=== PATIENT | female | born 1960 | race African-American/Black ===

== ENCOUNTER 2017-07-16 09:51 | Emergency (ER) | payer OTHER ==
[2017-07-16] MEDS ORDERED: HYDROMORPHONE HCL INJ/PF 2 MG/ML AMPULE IM ONE (11:17)
[2017-07-16] MEDS ORDERED: PREDNISONE 20 MG TABLET PO ONE (11:18)
[2017-07-16] MEDS ORDERED: LIDOCAINE 5% (700 MG) TRANSDERMAL ADH..PATCH TP ONE (11:18)
--- NOTE | 2017-07-16 11:21 | ER Document Report ---
HPI - HPI Patient complains to provider of: Low back pain Onset: This morning Onset/Duration: Sudden Quality of pain: Sharp Pain Level: 5 Context: She has a history of chronic low back pain that flared up today. 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 Patient denies any urinary retention or incontinence. Patient states pain is in the same location as previous episodes of her back pain been. Associated Symptoms: Other - Back pain. denies: Headache, Vomiting Exacerbated by: Movement Relieved by: Denies Similar symptoms previously: Yes Recently seen / treated by doctor: No - ROS ROS below otherwise negative: Yes Systems Reviewed and Negative: Yes All other systems reviewed and negative - CONSTITUTIONAL Constitutional: DENIES: Fever, Chills - NEURO Neurology: DENIES: Headache, Weakness - GASTROINTESTINAL Gastrointestinal: DENIES: Patient vomiting - REPRODUCTIVE Reproductive: DENIES: : - MUSCULOSKELETAL Musculoskeletal: REPORTS: Back Pain. 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 Lives with: Family Family History: Reviewed & Not Pertinent Patient has suicidal ideation: No Patient has homicidal ideation: No - Past Medical History Cardiac Medical History: Denies: Hx Hypercholesterolemia, Hx Hypertension Pulmonary Medical History: Reports: Hx Asthma Endocrine Medical History: Reports: Hx Hypothyroidism Renal/ Medical History: Denies: Hx Peritoneal Dialysis Musculoskeltal Medical History: Reports Hx Arthritis - LOW BACK, Reports Other - Chronic back pain Past Surgical History: Reports: Hx Abdominal Surgery - gastric sleeve in May 2013., Hx Gastric Bypass Surgery, Hx Gynecologic Surgery - Ablation procedure, Hx Tubal Ligation - Immunizations Hx Diphtheria, Pertussis, Tetanus Vaccination: Yes Vertical Provider Document - CONSTITUTIONAL Agree With Documented VS: Yes Exam Limitations: No Limitations General Appearance: WD/WN, No Apparent Distress Notes: PHYSICAL EXAMINATION: GENERAL: Well-appearing, well-nourished and in no acute distress. HEAD: Atraumatic, normocephalic. EYES: sclera clear, anicteric, conjunctiva are normal. ENT: nares patent, Moist mucous membranes. NECK: Normal range of motion, supple no lymphadenopathy LUNGS: respirations unlabored HEART: Regular rate and rhythm without murmurs EXTREMITIES: Normal range of motion, no pitting or edema. No cyanosis. Gait normal, pt ambulates without difficulty BACK: Lumbar paraspinal tenderness, lower lumbar midline tenderness, no deformities or step-offs. No CVA tenderness. NEUROLOGICAL: Cranial nerves grossly intact. Normal speech, patient walks with stooped gait comfort. No saddle anesthesia. 2+ bilateral patellar and Achilles reflexes PSYCH: Normal mood, normal affect. SKIN: Warm, Dry, normal turgor, no rashes or lesions noted. - INFECTION CONTROL TRAVEL OUTSIDE OF THE [place] IN LAST 30 DAYS: No - RESPIRATORY O2 Sat by Pulse Oximetry: 97 Course - Re-evaluation Re-evalutation: 07/16/17 11:19 The patient presents with low back pain without signs of spinal cord compression , cauda equina syndrome, infection, aneurysm, or other serious etiology. The patient is neurologically intact. Given the extremely risk of these diagnoses further testing and evaluation for these possibilities does not appear to be indicated at this time. Patient has been instructed to return if the symptoms worsen or change in any way. - Vital Signs Vital signs: Temp Pulse Resp BP Pulse Ox 97.7 F 93 19 115/71 97 07/16/17 09:56 07/16/17 09:56 07/16/17 09:56 07/16/17 09:56 07/16/17 09:56 - Diagnostic Test Radiology reviewed: Reports reviewed - Reviewed patient's L spine report from Discharge - Discharge Clinical Impression: Low back pain Qualifiers: Chronicity: chronic Back pain laterality: bilateral Sciatica presence: unspecified whether sciatica present Qualified Code(s): M54.5 - Low back pain Condition: Stable Disposition: HOME, SELF-CARE Instructions: Ice Packs ([facility]), Low Back Pain ([facility]), Oral Narcotic Medication ( [facility]), Steroid Medication Additional Instructions: Return immediately for any new or worsening symptoms Followup with your primary care provider, call tomorrow to make a followup appointment No heavy lifting Follow-up with pain management for any continued pain Prescriptions: Oxycodone HCl/Acetaminophen [Percocet 5-325 mg Tablet] 1 - 2 tab PO ASDIR PRN # 15 tablet PRN Reason: Prednisone [Deltasone 20 mg Tablet] 3 tab PO DAILY 4 Days tablet Forms: Return to Work Referrals: [facility] [Provider Group] - Follow up as needed [facility] [Provider Group] - Follow up as needed MATT DURAN MD [Primary Care Provider] - Follow up tomorrow
[2017-07-16 12:10] VITALS: BP 120/79
== END 2017-07-16 12:10 | disposition home or self-care (01) ==
LOC: ER 09:51
DX: M54.5 Low back pain (principal); G89.29 Other chronic pain; Z98.84 Bariatric surgery status; Z98.51 Tubal ligation status
CPT/HCPCS: 99283; J1170; J7512

== ENCOUNTER 2018-06-16 10:11 | Emergency (ER) | payer OTHER ==
[2018-06-16] MEDS ORDERED: CYCLOBENZAPRINE HCL 10 MG TABLET PO ONE (11:17)
[2018-06-16] MEDS ORDERED: OXYCODONE-ACETAMINOPHEN 5-325 MG TABLET PO ONE (11:17)
--- NOTE | 2018-06-16 13:04 | ER Document Report ---
HPI - HPI Patient complains to provider of: Low back pain Onset: Yesterday Onset/Duration: Gradual Quality of pain: Achy Pain Level: 5 Context: Patient presents complaining of a flareup of her chronic low back pain. Patient states that she has low back pain almost daily although reports pain yesterday increased from her normal. Patient states that she had been cleaning up her house and started to develop increased pain. Patient also complains of right upper back and neck pain. Patient states that since she has been here she has started to develop a headache. Patient states that she has not had anything to eat all day. Associated Symptoms: Headache, Other - Right-sided neck, back pain. denies: Nonproductive cough, Productive cough Exacerbated by: Movement Relieved by: Remaining still Similar symptoms previously: Yes Recently seen / treated by doctor: No - ROS ROS below otherwise negative: Yes Systems Reviewed and Negative: Yes All other systems reviewed and negative - CONSTITUTIONAL Constitutional: DENIES: Fever, Chills - NEURO Neurology: REPORTS: Headache. DENIES: Weakness, Vision blurred - CARDIOVASCULAR Cardiovascular: DENIES: Chest pain - RESPIRATORY Respiratory: DENIES: Trouble Breathing - GASTROINTESTINAL Gastrointestinal: DENIES: Nausea, Patient vomiting - REPRODUCTIVE Reproductive: DENIES: : - MUSCULOSKELETAL Musculoskeletal: REPORTS: Back Pain, Neck Pain. DENIES: Extremity pain - DERM Skin Color: Normal Skin Problems: None Past Medical History - General Information source: Patient - Social History Smoking Status: Never Smoker Frequency of alcohol use: None Drug Abuse: None Lives with: Family Family History: Reviewed & Not Pertinent Patient has suicidal ideation: No Patient has homicidal ideation: No - Past Medical History Cardiac Medical History: Denies: Hx Hypercholesterolemia, Hx Hypertension Pulmonary Medical History: Reports: Hx Asthma Endocrine Medical History: Reports: Hx Hypothyroidism Renal/ Medical History: Denies: Hx Peritoneal Dialysis Musculoskeletal Medical History: Reports Hx Arthritis - LOW BACK Past Surgical History: Reports: Hx Abdominal Surgery - gastric sleeve in May 2013., Hx Gastric Bypass Surgery, Hx Gynecologic Surgery - Ablation procedure, Hx Tubal Ligation - Immunizations Hx Diphtheria, Pertussis, Tetanus Vaccination: Yes Vertical Provider Document - CONSTITUTIONAL Agree With Documented VS: Yes Exam Limitations: No Limitations General Appearance: WD/WN, No Apparent Distress Notes: PHYSICAL EXAMINATION: GENERAL: Well-appearing, well-nourished and in no acute distress. HEAD: Atraumatic, normocephalic. EYES: sclera clear, anicteric, conjunctiva are normal. ENT: nares patent, Moist mucous membranes. NECK: Normal range of motion, supple no lymphadenopathy LUNGS: respirations unlabored HEART: Regular rate and rhythm without murmurs EXTREMITIES: Normal range of motion, no pitting or edema. No cyanosis. Gait normal, pt ambulates without difficulty BACK: Right trapezius muscle tenderness with spasm, right lower lumbar paraspinal tenderness midline tenderness, no deformities or step-offs. No CVA tenderness. NEUROLOGICAL: Cranial nerves grossly intact. Normal speech, normal gait. No saddle anesthesia. PSYCH: Normal mood, normal affect. SKIN: Warm, Dry, normal turgor, no rashes or lesions noted. - INFECTION CONTROL TRAVEL OUTSIDE OF THE [place] IN LAST 30 DAYS: No Course - Re-evaluation Re-evalutation: 06/16/18 13:02 The patient presents with low back pain without signs of spinal cord compression , cauda equina syndrome, infection, aneurysm, or other serious etiology. The patient is neurologically intact. Given the extremely risk of these diagnoses further testing and evaluation for these possibilities does not appear to be indicated at this time. 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 The patient is neurologically intact. Given the extremely low risk of these diagnoses further testing and evaluation for these possibilities does not appear to be indicated at this time. The patient has been instructed to return if the symptoms worsen or change in any way. - Vital Signs Vital signs: Temp Pulse Resp BP Pulse Ox 98.1 F 87 20 127/84 H 97 06/16/18 10:18 06/16/18 10:18 06/16/18 10:18 06/16/18 10:18 06/16/18 10:18 Discharge - Discharge Clinical Impression: Low back pain Qualifiers: Chronicity: unspecified Back pain laterality: right Sciatica presence: unspecified whether sciatica present Qualified Code(s): M54.5 - Low back pain Headache Qualifiers: Headache type: unspecified Headache chronicity pattern: unspecified pattern Intractability: not intractable Qualified Code(s): R51 - Headache Trapezius muscle strain Qualifiers: Encounter type: initial encounter Laterality: right Qualified Code(s): S46.811A - Strain of other muscles, fascia and tendons at shoulder and upper arm level, right arm, initial encounter Condition: Stable Disposition: HOME, SELF-CARE Instructions: Ice Packs ([facility]), Low Back Pain ([facility]), Muscle Relaxers ([facility]), Muscle Strain ([facility]), Oral Narcotic Medication ([facility]) Additional Instructions: Return immediately for any new or worsening symptoms Followup with your primary care provider, call tomorrow to make a followup appointment Prescriptions: Cyclobenzaprine HCl [Flexeril 10 Mg Tablet] 10 mg PO TID #15 tablet Oxycodone HCl/Acetaminophen [Percocet 5-325 mg Tablet] 1 tab PO ASDIR PRN #15 tablet PRN Reason: Referrals: KWAKU FERNANDEZ NP [Primary Care Provider] - Follow up as needed
[2018-06-16 13:25] VITALS: BP 121/82
== END 2018-06-16 13:20 | disposition home or self-care (01) ==
LOC: ER 10:11
DX: S46.811A Strain of other muscles, fascia and tendons at shoulder and upper arm level, right arm, initial encounter (principal); X58.XXXA Exposure to other specified factors, initial encounter; G89.29 Other chronic pain; R51 Headache; M54.6 Pain in thoracic spine; M54.2 Cervicalgia; M54.5 Low back pain; Z98.84 Bariatric surgery status
CPT/HCPCS: 99283

== ENCOUNTER 2018-09-03 19:42 | Emergency (ER) | payer OTHER ==
[2018-09-03] MEDS ORDERED: ASPIRIN 81 MG TABLET, CHEWABLE PO ONE (21:15)
[2018-09-03] MEDS ORDERED: IPRATROPIUM/ALBUTEROL 0.5-2.5 MG/3 ML AMPUL NEB ONE (21:20)
[2018-09-03] MEDS ORDERED: PREDNISONE 20 MG TABLET PO ONE (21:20)
[2018-09-03] MEDS: ALBUTEROL SULFATE 0.083% NEB 2.5 MG/3 ML AMPUL NEB SCH ×2 (21:25→21:53)
[2018-09-03 21:45] LABS: ABSOLUTE BASOPHILS # (AUTO) 0.1 10^3/uL (0.0-0.2); ABSOLUTE EOSINOPHILS # (AUTO) 0.2 10^3/uL (0.0-0.6); ABSOLUTE LYMPHOCYTES (AUTO) 2.3 10^3/uL (0.5-4.7); ABSOLUTE MONOCYTES (AUTO) 0.6 10^3/uL (0.1-1.4); ABSOLUTE NEUT (AUTO) 4.4 10^3/uL (1.7-8.2); BASOPHILS % (AUTO) 0.9 % (0-2); EOSINOPHILS % (AUTO) 2.7 % (0-6); HEMATOCRIT 35.9 % (36.0-47.0); HEMOGLOBIN 11.9 g/dL (12.0-15.5); LYMPHOCYTES % (AUTO) 30.3 % (13-45); MEAN CORPUSCULAR HGB CONC 33.1 g/dL (32.0-36.0); MEAN CORPUSCULAR VOLUME 94 fl (80-97); MONOCYTES % (AUTO) 8.5 % (3-13); PLATELET COUNT 262 10^3/uL (150-450); RED BLOOD COUNT 3.83 10^6/uL (3.72-5.28); RED CELL DISTRIBUTION WIDTH 14.6 % (11.5-14.0); SEGMENTED NEUTROPHILS % (AUTO) 57.6 % (42-78); TOTAL CELLS COUNTED % (AUTO) 100 %; WHITE BLOOD COUNT 7.6 10^3/uL (4.0-10.5)
[2018-09-03 22:04] LABS: ALANINE AMINOTRANSFERASE 13 U/L (9-52); ALBUMIN 4.8 g/dL (3.5-5.0); ALKALINE PHOSPHATASE 80 U/L (38-126); ANION GAP 6 (5-19); ASPARTATE AMINO TRANSFERASE 29 U/L (14-36); BILIRUBIN,DIRECT 0.5 mg/dL (0.0-0.4); BILIRUBIN,TOTAL 0.7 mg/dL (0.2-1.3); BLOOD UREA NITROGEN 8 mg/dL (7-20); CALCIUM 9.5 mg/dL (8.4-10.2); CARBON DIOXIDE 32 mmol/L (22-30); CHLORIDE 102 mmol/L (98-107); CREATINE KINASE 157 U/L (30-135); GLUCOSE 104 mg/dL (75-110); SODIUM 140.2 mmol/L (137-145); TOTAL PROTEIN 8.1 g/dL (6.3-8.2)
--- NOTE | 2018-09-03 22:06 | RADIOLOGY REPORT (SQ) ---
EXAM DESCRIPTION: XR CHEST 1 VIEW COMPLETED DATE/TME: 09/03/2018 21:15 CLINICAL HISTORY: 58 years, Female, CP COMPARISON: 2-16 chest NUMBER OF VIEWS: 1 TECHNIQUE: Portable chest LIMITATIONS: None. FINDINGS: Heart size is normal. Lungs are clear. No pneumothorax IMPRESSION: No acute cardiopulmonary process copyright 2010 [employer]- All Rights Reserved
[2018-09-03 22:18] LABS: NT PRO BNP 12 pg/mL (5-900)
[2018-09-03 22:23] LABS: CREATINE KINASE MB < 0.22 ng/mL (<4.55); TROPONIN I < 0.012 ng/mL
[2018-09-03] MEDS ORDERED: ALBUTEROL SULFATE 0.083% NEB 2.5 MG/3 ML AMPUL NEB ONE (23:13)
[2018-09-03] MEDS ORDERED: AZITHROMYCIN 250 MG TABLET PO ONE (23:13)
--- NOTE | 2018-09-04 00:19 | ER Document Report ---
ED Respiratory Problem - General Chief Complaint: Breathing Difficulty Stated Complaint: CHEST PAIN Time Seen by Provider: 09/03/18 22:08 Primary Care Provider: KWAKU FERNANDEZ NP [Primary Care Provider] - Follow up as needed Information source: Patient, Relative Notes: Patient is a 58-year-old female with a previous history of asthma who presents with 3-4 days of cough with congestion and chills. Patient reports that her asthma is well controlled and she no longer takes maintenance therapy, including no asthma exacerbations in the last 2 years, she also reports not having home rescue inhaler given her well-controlled state. She reports a nonproductive cough that began last week that was followed by chills and body aches, denies chest pain but does report increased work of breathing when she coughs, no swelling in the extremities, no confusion or disorientation. Patient does re port numerous sick contacts at [employer] the past couple weeks. TRAVEL OUTSIDE OF THE [place] IN LAST 30 DAYS: No - HPI Patient complains to provider of: Asthma, Cough, Short of breath Onset: Last week Duration: Continuous Initiating Event: URI Quality of pain: No pain Severity: Moderate Pain Level: Denies Context: Hx asthma Short of Breath: Moderate Cough: Nonproductive Sputum amount: None EMS treatments: Bronchodilators Associated symptoms: Chills, Congestion, Cough, Hurts to breathe Similar symptoms previously: No Recently seen / treated by doctor: No - Related Data Allergies/Adverse Reactions: Penicillins Allergy (Severe, Verified 07/16/17 09:53) aspirin [Aspirin] Adverse Reaction (Mild, Verified 07/16/17 09:53) Past Medical History - General Information source: Patient, Parent - Social History Smoking Status: Never Smoker Chew tobacco use (# tins/day): No Frequency of alcohol use: None Drug Abuse: None Lives with: Family Family History: Reviewed & Not Pertinent Patient has suicidal ideation: No Patient has homicidal ideation: No - Past Medical History Cardiac Medical History: Reports: None Denies: Hx Hypercholesterolemia, Hx Hypertension Pulmonary Medical History: Reports: Hx Asthma EENT Medical History: Reports: None Neurological Medical History: Reports: None Endocrine Medical History: Reports: Hx Hypothyroidism Renal/ Medical History: Reports: None. Denies: Hx Peritoneal Dialysis Malignancy Medical History: Reports: None GI Medical History: Reports: None Musculoskeletal Medical History: Reports Hx Arthritis - LOW BACK Skin Medical History: Reports None Psychiatric Medical History: Reports: None Traumatic Medical History: Reports: None Infectious Medical History: Reports: None Surgical Hx: Negative Past Surgical History: Reports: Hx Abdominal Surgery - gastric sleeve in May 2013., Hx Gastric Bypass Surgery, Hx Gynecologic Surgery - Ablation procedure, Hx Tubal Ligation - Immunizations Hx Diphtheria, Pertussis, Tetanus Vaccination: Yes Review of Systems - Review of Systems Constitutional: See HPI, Chills, Malaise, Weakness EENT: No symptoms reported Cardiovascular: No symptoms reported Respiratory: See HPI, Cough, Short of breath. denies: Sputum, Wheezing Gastrointestinal: No symptoms reported Genitourinary: No symptoms reported Female Genitourinary: No symptoms reported Musculoskeletal: No symptoms reported Skin: No symptoms reported Hematologic/Lymphatic: No symptoms reported Neurological/Psychological: No symptoms reported -: Yes All other systems reviewed and negative Physical Exam - Vital signs Vitals: Temp Pulse Resp BP Pulse Ox 99.8 F 89 14 141/93 H 93 09/03/18 19:53 09/03/18 19:53 09/03/18 19:53 09/03/18 19:53 09/03/18 19:53 Interpretation: Normal - Notes Notes: Well-appearing in no acute distress - General General appearance: Appears well, Alert - HEENT Head: Normocephalic, Atraumatic Eyes: Normal Pupils: PERRL - Respiratory Respiratory status: No respiratory distress Chest status: Nontender Breath sounds: Decreased air movement, Nonproductive cough, Wheezing. No: Rales, Rhonchi, Stridor Chest palpation: Normal - Cardiovascular Rhythm: Regular Heart sounds: Normal auscultation Murmur: No - Abdominal Inspection: Normal Distension: No distension Bowel sounds: Normal Tenderness: Nontender Organomegaly: No organomegaly - Rectal Notes: Deferred - Genitourinary Notes: Deferred - Back Back: Normal, Nontender - Extremities General upper extremity: Normal inspection, Nontender, Normal color, Normal ROM, Normal temperature General lower extremity: Normal inspection, Nontender, Normal color, Normal ROM, Normal temperature, Normal weight bearing. No: Uadra's sign - Neurological Neuro grossly intact: Yes Cognition: Normal Orientation: AAOx4 Ron Coma Scale Eye Opening: Spontaneous [place] Coma Scale Verbal: Oriented [place] Coma Scale Motor: Obeys Commands Ron Coma Scale Total: 15 Speech: Normal Motor strength normal: LUE, RUE, LLE, RLE Sensory: Normal - Psychological Associated symptoms: Normal affect, Normal mood - Skin Skin Temperature: Warm Skin Moisture: Dry Skin Color: Normal Course - Re-evaluation Re-evalutation: 09/03/18 22:31 Initial workup includes normal labs, normal cardiac enzymes, chest x-ray without acute pathology. Patient was already given oral steroids as well as nebulizer treatments and feels a little better. Will give additional albuterol breathing treatments as well as oral azithromycin and patient will be reassessed. 09/04/18 00:33 Patient feels better. She will be discharged home with return precautions and follow-up. But the patient and her voiced understanding and agreeing with the plan. - Vital Signs Vital signs: Temp Pulse Resp BP Pulse Ox 99.8 F 89 17 133/87 H 97 09/03/18 19:53 09/03/18 19:53 09/03/18 21:32 09/03/18 21:32 09/03/18 21:32 - Laboratory Result Diagrams: 09/03/18 21:30 09/03/18 21:30 Laboratory results interpreted by me: 09/03/18 09/03/18 21:30 21:30 Hgb 11.9 L Hct 35.9 L RDW 14.6 H Carbon Dioxide 32 H Direct Bilirubin 0.5 H Creatine Kinase 157 H - Diagnostic Test Radiology reviewed: Image reviewed, Reports reviewed - EKG Interpretation by Me EKG shows normal: Sinus rhythm Rate: Normal Rhythm: NSR [place]/QRS: No: Right axis deviation, Left axis deviation, RBBB, LBBB, IVCD, LAHB/LAFB, LPHB/LPFB, Bifasicular block Voltage: No: Increased voltage, Consistant with LVH, Decreased voltage, Throughout, Limb leads Heart block present: No: 1st Degree, Mobitz 1, Mobitz 2, CHB (3rd degree block) When compared to previous EKG there are: No significant change Discharge - Discharge Clinical Impression: Acute bronchitis Qualifiers: Bronchitis organism: unspecified organism Qualified Code(s): J20.9 - Acute bronchitis, unspecified Asthma exacerbation Qualifiers: Asthma severity: moderate Asthma persistence: unspecified Qualified Code(s): J45.901 - Unspecified asthma with (acute) exacerbation Condition: Good Disposition: HOME, SELF-CARE Instructions: Bronchitis With Bronchospasm (Wheezing) ([facility]) Additional Instructions: Please follow-up with your regular physician in 1 week to be rechecked. Return to the emergency department if you experience difficulty breathing, chest pain, high fevers uncontrolled by Motrin or Tylenol, or have any other concerning symptom. Prescriptions: Benzonatate [Tessalon Perles 100 mg Capsule] 100 mg PO Q8HP PRN #40 capsule PRN Reason: Azithromycin 500 mg PO DAILY #7 tablet Methylprednisolone [Medrol Dosepack (4 mg/Tab) 21 Tab/Dosepak] 21 tab PO ASDIR PRN #21 dspk PRN Reason: Referrals: KWAKU FERNANDEZ, [employer] EVENTS COORDINATOR [Primary Care Provider] - Follow up as needed Print Language: Bulgarian
[2018-09-04] MEDS ORDERED: ALBUTEROL SULFATE HFA (90 MCG/PUFF) 8 GM MDI (1 MDI/ER DISP) IH PRN (00:45)
[2018-09-04 01:03] VITALS: BP 117/74
--- NOTE | 2018-09-04 07:28 | EKG REPORT ---
SEVERITY:- BORDERLINE ECG - SINUS RHYTHM LVH BY VOLTAGE BORDERLINE PROLONGED QT INTERVAL : Confirmed by: Vielka Butler MD 04-Sep-2018 07:27:10
== END 2018-09-04 01:03 | disposition home or self-care (01) ==
LOC: ER 19:42
DX: J45.901 Unspecified asthma with (acute) exacerbation (principal); J20.9 Acute bronchitis, unspecified; R06.02 Shortness of breath; R07.9 Chest pain, unspecified; R05 Cough
CPT/HCPCS: 93005; 94640 ×2; 99284; 36415; 82553; 82550; 85025; 80053; 84484; 83880; 71045; 93010; J7512; J3490; J7620

== ENCOUNTER 2018-10-19 11:12 | Emergency (ER) | payer OTHER ==
--- NOTE | 2018-10-19 12:32 | ER Document Report ---
HPI - HPI Patient complains to provider of: RUE pain Time Seen by Provider: 10/19/18 12:07 Onset/Duration: Persistent Quality of pain: Throbbing Pain Level: 4 Context: Patient presents with a 5-day history of right upper extremity arm pain that extends from the trapezius area down to the level of the mid forearm. Patient denies any trauma or fever. Patient is right-hand dominant. Patient does report a history of degenerative disc disease to her spine. Associated Symptoms: Other - Right upper extremity pain. denies: Fever, Headache Exacerbated by: Movement Relieved by: Denies Similar symptoms previously: No Recently seen / treated by doctor: No - ROS ROS below otherwise negative: Yes Systems Reviewed and Negative: Yes All other systems reviewed and negative - CONSTITUTIONAL Constitutional: DENIES: Fever, Chills - NEURO Neurology: DENIES: Headache, Weakness - REPRODUCTIVE Reproductive: DENIES: : - MUSCULOSKELETAL Musculoskeletal: REPORTS: Extremity pain. 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 Lives with: Spouse/Significant other Family History: Reviewed & Not Pertinent - Past Medical History Cardiac Medical History: Reports: Hx Hypercholesterolemia Denies: Hx Hypertension Pulmonary Medical History: Reports: Hx Asthma Endocrine Medical History: Reports: Hx Hypothyroidism Renal/ Medical History: Denies: Hx Peritoneal Dialysis Musculoskeletal Medical History: Reports Hx Arthritis - LOW BACK Past Surgical History: Reports: Hx Abdominal Surgery - gastric sleeve in May 2013., Hx Gastric Bypass Surgery, Hx Gynecologic Surgery - Ablation procedure, Hx Tubal Ligation - Immunizations Hx Diphtheria, Pertussis, Tetanus Vaccination: Yes Vertical Provider Document - CONSTITUTIONAL Agree With Documented VS: Yes Exam Limitations: No Limitations General Appearance: WD/WN, No Apparent Distress - INFECTION CONTROL TRAVEL OUTSIDE OF THE [place] IN LAST 30 DAYS: No - HEENT HEENT: Atraumatic, Normocephalic - NECK Neck: Normal Inspection, Supple. negative: Lymphadenopathy-Left, Lymphadenopathy-Right - RESPIRATORY Respiratory: Breath Sounds Normal, No Respiratory Distress - CARDIOVASCULAR Cardiovascular: Regular Rate, Regular Rhythm Pulses: Normal: Radial - BACK Back: Abnormal Inspection - Right trapezius muscle tenderness - MUSCULOSKELETAL/EXTREMETIES Musculoskeletal/Extremeties: MAEW, FROM, Tender - Patient with generalized tenderness to right upper extremity and right shoulder area. Patient with tenderness from shoulder area down to the mid forearm area of the right upper extremity. Normal skin color and temperature overlying area of tenderness., No Edema. negative: Eccymosis - NEURO Level of Consciousness: Awake, Alert, Appropriate Motor/Sensory: No Motor Deficit, No Sensory Deficit - DERM Integumentary: Warm, Dry, No Rash Course - Re-evaluation Re-evalutation: 10/19/18 Patient with symptoms worrisome for a cervical radicular pain. Patient with full passive range of motion. Patient does guard on examination. No vascular compromise. Patient encouraged to follow-up with her primary doctor for further management of her symptoms. - Vital Signs Vital signs: Temp Pulse Resp BP Pulse Ox 97.8 F 84 16 128/78 H 98 10/19/18 11:27 10/19/18 11:27 10/19/18 11:27 10/19/18 11:27 10/19/18 11:27 Discharge - Discharge Clinical Impression: Cervical radicular pain Condition: Stable Disposition: HOME, SELF-CARE Instructions: Oral Narcotic Medication ([facility]), Radiculopathy ([facility]), Steroid Medication Additional Instructions: Return immediately for any new or worsening symptoms Followup with your primary care provider, call tomorrow to make a followup appointment Prescriptions: Oxycodone HCl/Acetaminophen [Percocet 5-325 mg Tablet] 1 tab PO ASDIR PRN #15 tablet PRN Reason: Prednisone [Deltasone 20 mg Tablet] 3 tab PO DAILY 5 Days tablet Referrals: KWAKU FERNANDEZ NP [Primary Care Provider] - Follow up as needed
[2018-10-19] MEDS ORDERED: IBUPROFEN 800 MG TABLET PO ONE (12:33)
[2018-10-19] MEDS ORDERED: OXYCODONE-ACETAMINOPHEN 5-325 MG TABLET PO ONE (12:33)
[2018-10-19] MEDS ORDERED: LIDOCAINE 5% (700 MG) TRANSDERMAL ADH..PATCH TP ONE (12:33)
[2018-10-19 12:56] VITALS: BP 134/72
== END 2018-10-19 12:57 | disposition home or self-care (01) ==
LOC: ER 11:12
DX: M54.12 Radiculopathy, cervical region (principal); J45.909 Unspecified asthma, uncomplicated; Z98.84 Bariatric surgery status
CPT/HCPCS: 99283